=== PATIENT | female | born 1955 | race Caucasian/White ===

== ENCOUNTER 2021-11-06 14:14 | Emergency (ER) | payer OTHER ==
[~2021-11-06] VITALS: Ht 167.6 cm; Wt 76.0 kg
--- NOTE | 2021-11-06 15:57 | PHYS DOC ---
Past History Past Surgical History: No Surgical History Alcohol Use: None General Adult EDM: Chief Complaint: LOWER EXT PAIN HPI: HPI: Patient is a 66-year-old female that presents today with right calf pain. Patient states she was picking up her granddaughter and placing her on the bed when she felt a pop in the calf area on her right leg. She states she has been able to bear weight onto that foot she states she is able to flex her foot barely but it does cause her great pain. Review of Systems: Review of Systems: Constitutional: Denies fever or chills Eyes: Denies change in visual acuity HENT: Denies nasal congestion or sore throat Respiratory: Denies cough or shortness of breath Cardiovascular: Denies chest pain or edema GI: Denies abdominal pain, nausea, vomiting, bloody stools or diarrhea : Denies dysuria Musculoskeletal: Right calf pain Integument: Denies rash Neurologic: Denies headache, focal weakness or sensory changes Endocrine: Denies polyuria or polydipsia Lymphatic: Denies swollen glands Psychiatric: Denies depression or anxiety Current Medications: Current Meds: Current Medications Medications (Trade) Dose Ordered Sig/Angela Start Time Stop Time Status Last Admin Dose Admin Acetaminophen/ Hydrocodone Bitart (Lortab 5/325) 2 tab 1X ONCE 11/06/21 15:30 11/06/21 15:31 UNV Allergies: Allergies: Allergies Coded Allergies Type Severity Reaction Last Updated Verified No Known Drug Allergies 11/06/21 No Physical Exam: PE: Constitutional: Well developed, well nourished, no acute distress, non-toxic appearance. [] HENT: Normocephalic, atraumatic, bilateral external ears normal, oropharynx moist, no oral exudates, nose normal. [] Eyes: PERRLA, EOMI, conjunctiva normal, no discharge. [] Neck: Normal range of motion, no tenderness, supple, no stridor. [] Cardiovascular:Heart rate regular rhythm, no murmur [] Lungs & Thorax: Bilateral breath sounds clear to auscultation [] Abdomen: Bowel sounds normal, soft, no tenderness, no masses, no pulsatile masses. [] Skin: Warm, dry, no erythema, no rash. [] Back: No tenderness, no CVA tenderness. [] Extremities: Palpation of the right calf has pain, Napier test was performed patient did have movement of the foot with compression of the calf muscle, pedal pulse is 2+, sensory is intact distal to the injury [] Neurologic: Alert and oriented X 3, normal motor function, normal sensory function, no focal deficits noted. [] Psychologic: Affect normal, judgement normal, mood normal. [] Current Patient Data: Vital Signs: Vital Signs Date Time Temp Pulse Resp B/P (MAP) Pulse Ox O2 Delivery O2 Flow Rate FiO2 11/06/21 16:05 16 98 EKG: EKG: [] Radiology/Procedures: Radiology/Procedures: [REASON: calf pain after feeling pop PROCEDURE: TIBIA FIBULA RIGHT EXAM: XR RT TIBIA+FIBULA 11/06/2021 3:37 PM CLINICAL INDICATION: Calf pain after feeling a pop COMPARISON: None TECHNIQUE: 2 views of the right tibia and fibula FINDINGS: No acute fracture. Alignment is normal. No focal soft tissue abnormality. IMPRESSION: No acute osseous abnormality of the right tibia or fibula. Electronically signed by: Sindhu Watson MD (11/06/2021 4:32 PM) [id number]] Heart Score: C/O Chest Pain: No Risk Factors: Risk Factors: DM, Current or recent (<one month) smoker, HTN, HLP, family history of CAD, obesity. Risk Scores: Score 0 - 3: 2.5% MACE over next 6 weeks - Discharge Home Score 4 - 6: 20.3% MACE over next 6 weeks - Admit for Clinical Observation Score 7 - 10: 72.7% MACE over next 6 weeks - Early Invasive Strategies Course & Med Decision Making: Course & Med Decision Making Pertinent Labs and Imaging studies reviewed. (See chart for details) 1630 reviewed radiological results with patient did inform her there was no acute findings at this time, did inform her I suspect that she has a partial Achilles tear due to the fact that she can move her foot, will place her in a posterior splint with a slight plantarflexion, will provide crutches for the patient and inform her to follow-up with her primary care physician or for the orthopedic doctor on-call for further management of her right calf pain. Patient will be given prescription for hydrocodone and she can also take o [id number] Motrin as needed as well. Patient is agreeable to the plan of care and verbalizes understanding of discharge instructions. Sami Disclaimer: Sami Disclaimer: This electronic medical record was generated, in whole or in part, using a voice recognition dictation system. Departure Departure: Impression: Primary Impression: Achilles tendon injury Qualified Codes: S86.001A - Unspecified injury of right Achilles tendon, initial encounter Disposition: HOME / SELF CARE / HOMELESS Condition: STABLE Referrals: DIMPLE VILLAVICENCIO MD (PCP) Patient Instructions: Achilles Tendon Rupture (Complete), Cast or Splint Care, Crutch Use Additional Instructions: Keep splint clean and dry No weight to right foot while ambulating, use crutches. Hydrocodone take 1 to 2 tablets every 6 hours as needed for severe pain, use with caution may cause constipation or drowsiness [id number] Motrin as labeled directed for mild to moderate pain Follow-up with the primary care physician or Dr. Dsouza, orthopedic physician, at [phone] for further management of your right lower leg pain or possible Achilles tendon injury Scripts Hydrocodone Bit/Acetaminophen (HYDROCODONE-APAP 5-325 ) 1 Each Tablet 1 TAB PO PRN Q6HRS PRN for PAIN, #20 TAB 0 Refills Prov: AUREA CABEZAS CASINO DEALER 11/06/21 AUREA CABEZAS CASINO DEALER Nov 06, 2021 15:57
[2021-11-06] MEDS: HYDROcodone/APAP 5/325MG 1 TAB TABLET PO ONE (16:05)
--- NOTE | 2021-11-06 16:34 | RAD ---
EXAM: XR RT TIBIA+FIBULA 11/06/2021 3:37 PM CLINICAL INDICATION: Calf pain after feeling a pop COMPARISON: None TECHNIQUE: 2 views of the right tibia and fibula FINDINGS: No acute fracture. Alignment is normal. No focal soft tissue abnormality. IMPRESSION: No acute osseous abnormality of the right tibia or fibula. Electronically signed by: Sindhu Watson MD (11/06/2021 4:32 PM) [id number]
[2021-11-06] MEDS ORDERED: HYDR-2155 PO (16:50)
== END 2021-11-06 17:23 | disposition home or self-care (01) ==
LOC: ER 14:14
DX: S86.001A Unspecified injury of right Achilles tendon, initial encounter (principal); X50.9XXA Other and unspecified overexertion or strenuous movements or postures, initial encounter; Y93.89 Activity, other specified; Y92.89 Other specified places as the place of occurrence of the external cause; Y99.8 Other external cause status
CPT/HCPCS: 29515; 73590; 99283